=== PATIENT | male | born 1950 | race African-American/Black ===

== ENCOUNTER 2021-10-07 15:22 | Inpatient (IN) | payer OTHER ==
[2021-10-07 16:05] VITALS: BMI 19.0
[2021-10-07] MEDS ORDERED: ONDANSETRON *ODT* 4 MG TABLET SL PRN (17:49)
[2021-10-07] MEDS ORDERED: METHOCARBAMOL 500 MG TABLET PO PRN (17:49)
[2021-10-07] MEDS ORDERED: LOPERAMIDE HCL 2 MG CAPSULE PO PRN (17:49)
[2021-10-07] MEDS ORDERED: IBUPROFEN 400 MG TABLET (FP) PO PRN (17:49)
[2021-10-07] MEDS ORDERED: BENZOCAINE/MENTHOL (CHLORASEPTIC ) LOZENGE MM PRN (17:49)
[2021-10-07] MEDS ORDERED: IBUPROFEN 600 MG TABLET (FP) PO PRN (17:49)
[2021-10-07] MEDS ORDERED: DICYCLOMINE HCL 10 MG CAPSULE PO PRN (17:49)
[2021-10-07] MEDS ORDERED: MAG HYDROX/AL HYDROX/SIMETH 30 ML UNIT-DOSE CUP PO PRN (17:49)
[2021-10-07] MEDS ORDERED: NICOTINE POLACRILEX 2 MG GUM BUC PRN (17:49)
[2021-10-07] MEDS ORDERED: BISMUTH SUBSALICYLATE 524 MG/30 ML PO PRN (17:49)
[2021-10-07] MEDS ORDERED: MAGNESIUM HYDROX 2400MG/30ML ORAL SUSPENSION 30 ML CUP PO PRN (17:49)
[2021-10-07] MEDS ORDERED: MAGNESIUM CITRATE 300 ML BOTTLE PO PRN (17:49)
[2021-10-07] MEDS ORDERED: ACETAMINOPHEN 325 MG TABLET (FP) PO PRN ×2 (17:49)
[2021-10-07] MEDS ORDERED: MELATONIN 5 MG TABLETS PO SCH (22:00)
[2021-10-07] MEDS ORDERED: THIAMINE HCL 100 MG TABLET (FP) PO SCH (22:00)
[2021-10-08 09:14] VITALS: RESP 18
[2021-10-08] MEDS ORDERED: PRENATAL VITAMINS W/ FOLIC ACID TABLET (FP) PO SCH (10:00)
[2021-10-08] MEDS ORDERED: FAMOTIDINE 20 MG TABLET PO SCH (10:30)
[2021-10-08] MEDS ORDERED: PANTOPRAZOLE 20 MG TABLET PO SCH (10:30)
[2021-10-08 10:37] LABS: HEMATOCRIT 36.3 % (35.4-49); HEMOGLOBIN 12.3 GM/dL (11.7-16.9); MCH 33.6 pg (25.7-33.7); MCHC 33.9 g/dl (32.0-35.9); MEAN CELL VOLUME 98.9 fl (80-96); MEAN PLT VOLUME 8.5 fl (7.5-11.1); PLATELET COUNT 258 10^3/uL (134-434); RBC 3.67 M/mm3 (4.00-5.60); RDW 15.4 % (11.9-15.9); WHITE BLOOD COUNT 4.3 K/mm3 (4.0-10.0)
[2021-10-08 10:47] LABS: CALCIUM 9.3 mg/dL (8.5-10.1)
[2021-10-08 10:48] LABS: ALBUMIN 3.7 g/dl (3.4-5.0); BLOOD UREA NITROGEN 26.8 mg/dL (7-18)
[2021-10-08 10:53] LABS: BILIRUBIN,TOTAL 0.9 mg/dL (0.2-1); TOT PROT 7.3 g/dl (6.4-8.2)
[2021-10-08 13:27] VITALS: BP 100/65; PULSE 78; TEMP 98
== END 2021-10-08 14:04 | disposition home or self-care (01) | DRG 775 ==
LOC: YASAS 15:22 → Y3N 21:29
PROVIDERS: ADMIT Allergy & Immunology; ATTEND Surgery
PROC: HZ2ZZZZ Detoxification Services for Substance Abuse Treatment (ICD-10-PCS; principal; 2021-10-07)
DX: F10.230 Alcohol dependence with withdrawal, uncomplicated (principal); F17.210 Nicotine dependence, cigarettes, uncomplicated; B18.2 Chronic viral hepatitis C; K59.01 Slow transit constipation; K21.9 Gastro-esophageal reflux disease without esophagitis; M17.0 Bilateral primary osteoarthritis of knee
CPT/HCPCS: 36415; 80053; 85027; 86780; C9803-CS; U0003; U0005